=== PATIENT | male | born 1945 | race Caucasian/White ===

== ENCOUNTER → 2020-12-04 | Day surgery (SDC) | payer OTHER ==
[~2020-12-04] MED LIST: ADVIL200 M3 PO; BETIMOL5 ML EA. EYE; HYDROCODON-ACE1 EAC7 PO
--- NOTE | ~2020-12-04 | OP ---
[facility] [address] [place] [address] OPERATIVE REPORT Name: CHRIS PROCTOR Room: [facility].#: [id number] Admission: 12/04/20 Attend Phys: Wesley Carranza Discharge: Date of : 47 Report #: [id number] THIS REPORT FOR: cc: Chris Tapia MD, Michael MD Patterson,Wesley Montelongo MD ~ DOC #: [id number] Wesley Carranza MD DATE OF SURGERY: 12/04/2020 PREOPERATIVE DIAGNOSIS: Incarcerated ventral incisional hernia. POSTOPERATIVE DIAGNOSIS: Incarcerated ventral incisional hernia. OPERATION: Laparoscopic repair of incarcerated ventral incisional hernia with mesh, x 2. SURGEON: Wesley Carranza MD. ANESTHESIA: General. ESTIMATED BLOOD LOSS: Minimal. SPECIMEN: None. DESCRIPTION OF PROCEDURE: After informed consent was obtained, the patient was brought to the operating room and placed supine. SCDs were placed and working, preoperative antibiotics were administered, general anesthesia was induced. The abdomen was prepped and draped in the usual sterile fashion. A 10 mm trocar was placed in the left side and a 5 mm trocar was placed on the right. He had 2 hernia areas. One was at the umbilicus. The umbilicus had incarcerated preperitoneal fat and this was all reduced. The defect measured less than 1 cm. An 11 cm Bard Ventralight mesh was inserted. It was tacked up to the abdominal wall with 30 absorbable tacks. I then directed my attention to the midline. In the midline incision, he had an incarcerated omentum. This was all reduced. This was a [place] cheese type hernia. Defect measured approximately 10 x 10 cm. Therefore, I inserted a 15.1 cm Bard Echo mesh. It was brought up to the abdominal wall. The balloon was inflated. The mesh laid nice and flat and it was tacked with 30 absorbable tacks. A transfascial 2-0 Ethibond suture was placed using the I suture passer. The ports were removed under direct vision. The skin was closed with 4-0 Monocryl. The 10 mm site was closed with a [id number] 0 [place] [address] OPERATIVE REPORT Name: CHRIS PROCTOR Room: [facility]#: [id number] Admission: 12/04/20 Attend Phys: Wesley Carranza Discharge: Date of : 47 Report #: [id number] were dressed with Steri-Strips and sterile dressings were applied. COMPLICATIONS: None. DISPOSITION: The patient was taken to recovery in satisfactory condition. MD JUSTYNA Hartman/PAO By: [id number] Carranza MD /maximus
[2020-12-04 09:06] LABS: HEMATOCRIT 47.5 % (42.0-52.0); HEMOGLOBIN 16.3 gm/dL (14.0-18.0); MCH 34.2 pg (26.0-34.0); MCHC 34.3 g/dL (28.0-37.0); MCV 99.8 fL (80.0-100.0); MPV 9.8 fl. (7.2-11.1); RBC 4.76 mil/uL (4.50-6.00); RDW-CV 13.7 % (10.5-14.5); WBC 5.1 thou/uL (4.0-11.0)
[2020-12-04 09:17] LABS: CALCIUM 8.2 mg/dL (8.5-10.1); CREATININE 0.9 mg/dL (0.6-1.3)
--- NOTE | 2020-12-04 11:33 | EKG ---
[place] [address] ELECTROCARDIOGRAM REPORT Name: ALIZA PROCTOR Room: [facility]#: [id number] Admission: 12/04/20 Attend Phys: Wesley rFankel Discharge: Date of : 47 Date of Service: 12/04/20 0859 Report #: [id number] THIS REPORT FOR: //name// [facility] Test Date: 2020-12-04 Test Time: 08:59:44 Pat Name: ALIZA PROCTOR Department: Room: Gender: Calender Tender: : 1945 Requested By: Chantell Stringer Order Number: [id number] Tessa MD: Karl Mena Measurements Intervals [place] Rate: 69 P: -44 ME: 164 QRS: -2 QRSD: 81 T: 57 QT: 413 QTc: 443 Interpretive Statements Sinus rhythm Posterior infarct, old possible Baseline wander in lead(s) V1 No previous ECG available for comparison Electronically Signed On 12-04-2020 11:33:38 CDT by Karl Mena [email or web address] <ELECTRONICALLY SIGNED> By: Karl Mena MD, [facility] 12/04/20 1133 [id number] Karl Mena MD, [facility] /EPI
== END | disposition home or self-care (01) ==
LOC: M.SUR 07:00
PROVIDERS: Anesthesiology; ATTEND Surgery
DX: K43.0 Incisional hernia with obstruction, without gangrene (principal); R10.9 Unspecified abdominal pain; Z98.890 Other specified postprocedural states; Z79.899 Other long term (current) drug therapy; Z88.6 Allergy status to analgesic agent